=== PATIENT | female | born 1960 | race Hispanic/Latino ===

== ENCOUNTER 2016-06-27 09:07 | Outpatient (CLI) | payer MEDICAID ==
--- NOTE | 2016-06-27 13:42 | Magnetic Resonance Report ---
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 Axial diffusion and gradient imaging was performed. Post contrast T1 images in two planes were obtained following IV gadolinium. Findings: The brain parenchyma signal intensity and its fontaine-white interface are normal on all sequences. No abnormal parenchymal signal. No diffusion restriction, hemorrhage, mass effect or extra-axial fluid collection. Ventricular size is normal and symmetric. The basal cisterns are clear. The brainstem and cerebellar hemispheres are within normal limits. The fourth ventricle is midline. The paranasal sinuses and mastoid air cells are well aerated. Normal flow voids are identified in the appropriate vessels at the [place]. No abnormal enhancement is identified following IV gadolinium. Impression: 1. Unremarkable MRI brain with and without contrast.
== END 2016-06-27 09:08 | disposition home or self-care (01) ==
LOC: SPVIMAG 09:07
PROVIDERS: ATTEND Internal Medicine Hematology & Oncology
DX: C49.4 Malignant neoplasm of connective and soft tissue of abdomen (principal)
CPT/HCPCS: 70553; A9577